=== PATIENT | male | born 1960 | race Caucasian/White ===

== ENCOUNTER → 2017-11-09 | Emergency (ER) | payer SELFPAY ==
[~2017-11-09] MED LIST: Naproxen 500 MG TAB ONE; Tobramycin Sulfate 0.3% Ophth Susp 5 ml Bottle ONE
== END ==
LOC: MADERS 18:12
DX: H10.9 Unspecified conjunctivitis (principal); J06.9 Acute upper respiratory infection, unspecified
CPT/HCPCS: 99282

== ENCOUNTER 2018-02-10 16:53 | Emergency (ER) | payer SELFPAY ==
[2018-02-10] MEDS ORDERED: Bupivacaine PF 0.5% 30 ML VIAL ONE (17:06)
[2018-02-10] MEDS ORDERED: Clindamycin 150 MG CAP ONE (17:18)
== END 2018-02-10 17:30 | disposition home or self-care (01) ==
LOC: MADERS 16:53
DX: K04.7 Periapical abscess without sinus (principal)
CPT/HCPCS: 64400; S0020